=== PATIENT | female | born 1995 | race Caucasian/White ===

== ENCOUNTER 2017-09-12 23:42 | Inpatient (IN) | payer OTHER ==
[2017-09-13] MEDS: DEXTROSE 5%-LACTATED RINGERS 1,000 ML IV SCH ×3 (00:30→10:40)
[2017-09-13 00:52] LABS: BASO % 0.6 % (0-2.0); HEMATOCRIT 37.2 % (32.4-45.2); HEMOGLOBIN 12.6 GM/dL (10.7-15.3); MCH 28.6 pg (25.7-33.7); MEAN CELL VOLUME 84.2 fl (80-96); MEAN PLT VOLUME 8.3 fl (7.5-11.1); NEUT % 75.4 % (42.8-82.8); PLATELET COUNT 243 K/MM3 (134-434); RBC 4.42 M/mm3 (3.60-5.2); RDW 15.5 % (11.6-15.6)
[2017-09-13 01:14] VITALS: BMI 33.6
[2017-09-13 01:16] LABS: INR 0.89 (0.82-1.09); PROTHROMBIN TIME (PATIENT) 10.1 SEC (9.98-11.88)
[2017-09-13 01:19] LABS: ACTIVATED PTT 22.1 SECONDS (26.9-34.4)
[2017-09-13 01:31] LABS: ANION GAP 12 (8-16); BLOOD UREA NITROGEN 6 mg/dL (7-18); CALCIUM 8.8 mg/dL (8.5-10.1); CHLORIDE 103 mmol/L (98-107); CO2 23 mmol/L (21-32); CREATININE 0.4 mg/dL (0.55-1.02); GLUCOSE,RANDOM 92 mg/dL (74-106); SODIUM 138 mmol/L (136-145)
[2017-09-13 01:32] LABS: POTASSIUM 3.9 mmol/L (3.5-5.1)
[2017-09-13] MEDS ORDERED: SODIUM PHOSPHATE/NA BIPHOS 133 ML ENEMA PR ONE (08:00)
[2017-09-13] MEDS ORDERED: OXYTOCIN 30 UNITS in 0.9% NS 30 UNIT/500 ML INFUS.BAG IVPB SCH (08:30)
[2017-09-13] MEDS ORDERED: OXYTOCIN 30 UNITS in 0.9% NS 30 UNIT/500 ML INFUS.BAG IVPB ONE (08:38)
--- NOTE | 2017-09-13 09:48 | HP ---
Past Medical History - Admission Chief Complaint: Rupture of membrane History of Present Illness: 22 yo @ 39 weeks gestation, EDC 09/20/17, presents to L&D c/o rupture of membrane at 11 pm. Upon admission she was 4cm dilated with evidence of gross pooling. History Source: Patient Limitations to Obtaining History: No Limitations - Past Medical History ...: 1 ...Para: 0 ...Term: 0 ...: 0 ...Spon : 0 ...Induced : 0 ...Multiple Gestation: 0 ...LMP: 12/14/16 ... Weeks Gestation by Dates: 39.0 ...EDC by Dates: 09/20/17 ...EDC by Sono: 09/20/17 - Past Surgical History Past Surgical History: Yes: None Hx Myomectomy: No Hx Transabdominal Cerclage: No - Smoking History Smoking history: Never smoked Have you smoked in the past 12 months: No Aproximately how many cigarettes per day: 0 - Alcohol/Substance Use Hx Alcohol Use: No History of Substance Use: reports: None - Social History History of Recent Travel: No Home Medications - Allergies Allergies/Adverse Reactions: Allergies Allergy/AdvReac Type Severity Reaction Status Date / Time No Known Allergies Allergy Verified 09/13/17 00:37 - Home Medications Home Medications: Ambulatory Orders Vitamins (Sjr) - 1 tab PO DAILY 09/13/17 Family Disease History - Family Disease History Family History: Unremarkable Review of Systems - Review of Systems Constitutional: reports: No Symptoms Eyes: reports: No Symptoms HENT: reports: No Symptoms Neck: reports: No Symptoms Cardiovascular: reports: No Symptoms Respiratory: reports: No Symptoms Gastrointestinal: reports: No Symptoms Genitourinary: reports: Other (Rupture of membrane) Breasts: reports: No Symptoms Reported Musculoskeletal: reports: No Symptoms Integumentary: reports: No Symptoms Neurological: reports: No Symptoms Endocrine: reports: No Symptoms Hematology/Lymphatic: reports: No Symptoms Psychiatric: reports: No Symptoms Pain Intensity: 3 Physical Exam - Maternity Vital Signs: Vital Signs Temperature 97.7 F 09/13/17 08:00 Pulse Rate 98 H 09/13/17 09:00 Respiratory Rate 18 09/13/17 09:00 Blood Pressure 104/69 09/13/17 09:00 O2 Sat by Pulse Oximetry (%) Constitutional: Yes: Well Nourished Eyes: Yes: Conjunctiva Clear HENT: Yes: Atraumatic Neck: Yes: Supple Cardiovascular: Yes: Regular Rate and Rhythm Lungs: Clear to auscultation - Abdominal Exam/OB Number of Fetuses: Single Presentation: Vertex Regularity: Irregular - Vaginal Exam/OB Vaginal Bleediing: No Dilatation (cm): 4 - Physical Exam Musculoskeletal: Yes: WNL ...Motor Strength: WNL Psychiatric: Yes: Alert, Oriented - Labs Lab Results: CBC, BMP 09/13/17 00:41 09/13/17 00:41 Problem List - Problems (1) Spontaneous rupture of amniotic membranes Code(s): OJR5838 - (2) 39 weeks gestation of Code(s): Z3A.39 - 39 WEEKS GESTATION OF Assessment/Plan Spontaneous rupture of membrane Admit to L&D Anticipate
--- NOTE | 2017-09-13 10:03 | PN ---
Progress Note (short form) - Note Progress Note: 22 yrs , edc 09/20/17 [address] Reyes due to SROM at 11.00 pm 09/12/17 , onset of irregular UC since 12.00 midnight pnc at [address] [place] [address] A pos ,,Hbsag neg, Quantiferon , neg, , 1hr gtt 108, , Rpr nr,Hiv neg, Gbs neg, .. last sono 07/27/17 : Nt screen neg, Modified Sequential neg , SLIUP , Vx 32.1 weeks,, AFI12.5, , EFW 4'2"( 42%) UC were irregular 5-6 min , FHR 130-140 cat-1 tracing fleets enema followed by Iv pitocin augmentation is started at 8.45 AM 9.30 AM UC are irregular, mild, 3-5 min , fhr tracing cat-1 pelvic ex : 2 CM/70 %//mr/vX -3/-2 Selected Entries 09/13/17 09/13/17 08:00 09:00 Temperature 97.7 F Pulse Rate 89 98 H Blood Pressure 103/64 104/69 Laboratory Tests 09/13/17 09/13/17 09/13/17 00:41 00:41 00:41 WBC 8.0 Hgb 12.6 Hct 37.2 Plt Count 243 D Neutrophils % 75.4 D Lymphocytes % 16.0 D PT with INR 10.10 INR 0.89 PTT (Actin FS) 22.1 L Sodium 138 Potassium 3.9 Chloride 103 Carbon Dioxide 23 BUN 6 L Creatinine 0.4 L Random Glucose 92 Calcium 8.8 Blood Type 09/13/17 00:41 WBC Hgb Hct Plt Count Neutrophils % Lymphocytes % PT with INR INR PTT (Actin FS) Sodium Potassium Chloride Carbon Dioxide BUN Creatinine Random Glucose Calcium Blood Type A POSITIVE Imp 39 Week, /Latent labor/SROM/Pitocin Augmentation Plan : ct Pitoci pt prefers Epidural labor analgesia trial of labor for vaginal delivery
[2017-09-13] MEDS ORDERED: BUTORPHANOL TARTRATE 1 MG/ML VIAL ONE ×2 (12:55)
[2017-09-13] MEDS ORDERED: PROMETHAZINE HCL 25 MG/1 ML VIAL ONE (12:56)
[2017-09-13] MEDS ORDERED: BUTORPHANOL TARTRATE 1 MG/ML VIAL IVPUSH ONE (13:00)
[2017-09-13] MEDS ORDERED: PROMETHAZINE HCL 25 MG/1 ML VIAL IVPUSH ONE (13:00)
--- NOTE | 2017-09-13 14:39 | PN ---
Progress Note, Labor Vaginal Exam #1 Labor Exam Date: 09/13/17 Labor Exam Time: 14:30 Heart Rate (range): 135-110 Dilatation: 9 Effacement (%): 100 Amniotic Membrane Status: Ruptured Station: +2 Remarks: UC q 3 min fhr cat-2 , early decel Selected Entries 09/13/17 14:00 Temperature 97.9 F Pulse Rate 78 Blood Pressure 118/72 Vaginal Exam #2 Labor Exam Date: 09/13/17 Labor Exam Time: 15:00 Heart Rate (range): 120 Dilatation: 10 Effacement (%): 100 Amniotic Membrane Status: Ruptured Station: +3 Remarks: fhr cat-2 uc q2 min pt encouraged to push
[2017-09-13] MEDS ORDERED: LIDOCAINE HCL 1% PRESERVATIVE FREE - 30ML VIAL ONE (15:11)
[2017-09-13] MEDS ORDERED: OXYTOCIN 20 UNITS in 0.9% NS 20 UNIT/1,000 ML INFUS.BAG IV ONE ×2 (15:11→17:21)
[2017-09-13] MEDS: OXYTOCIN 20 UNITS in 0.9% NS 20 UNIT/1,000 ML INFUS.BAG IV SCH ×2 (15:50→17:30)
[2017-09-13] MEDS ORDERED: ceFAZolin SODIUM 1 GM VIAL ONE (16:16)
[2017-09-13] MEDS ORDERED: ACETAMINOPHEN INJECTION 100 ML IVPB ONE (16:16)
[2017-09-13] MEDS ORDERED: CEFAZOLIN 2 GM in DEXTROSE 5%-WATER - 100 ML IVPB ONE (16:20)
[2017-09-13] MEDS ORDERED: BISACODYL 10 MG SUPP.RECT RC PRN (17:06)
[2017-09-13] MEDS ORDERED: BENZOCAINE 28 GM HEMORRHOIDAL OINTMENT TP PRN (17:06)
[2017-09-13] MEDS ORDERED: oxyCODONE HCL 5 MG TABLET PO PRN (17:06)
[2017-09-13] MEDS ORDERED: METHYLERGONOVINE MALEATE 0.2 MG/1 ML AMP IM PRN (17:06)
[2017-09-13] MEDS ORDERED: ACETAMINOPHEN 1000 MG/100 ML VIAL (NON FORMULARY) IVPB ONE (17:15)
--- NOTE | 2017-09-13 17:23 | PN ---
Delivery - Delivery Vaginal Delivery: Spontaneous (baby delievered vx , hal position , immediate suction of nose & oral cavity was done .) Type of Anesthesia: Local Episiotomy/Laceration: Midline, Vaginal Extension/lac, 4th Degree (after delivery of placenta 4 th degree exension was noted by pr exam local ansthesia infiltrated 1 % xylocaine. . mucosa about 2 cm above anal end extended seen. with 3/0 chr catgut rectal mucosa was sutured . few interrupted sutures superior to it were taken. . sphincter was identified held seprately with 2 sutures . vaginal mucosa sutured with chr catgut #2/0 . supf & deep perineal muscles sutured in layers interrupted sutures . skin was approximated by matress sutures with chr catgut#2/0 . gloves changed couple of times . Bladder was cathetrized emptied. 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 Gbs neg pnc at [address] [place] [address] Pitocin augmentation was given stadol 2 mg + phenrgan 25 mg iv sta once was given at 13.00 hr . Intrapartum course was uneventful Iv Tylenol 1000 mg given during suturing of 4 th degree tear . IV Ancef 2 gm ivpb was given . Plan pp care . roby care for 4 th degree.
[2017-09-13] MEDS: FERROUS SO4 325 MG TABLET (FP) PO SCH (18:55)
[2017-09-13] MEDS: DOCUSATE SODIUM 100 MG CAPSULE (FP) PO SCH (22:01)
[2017-09-14] MEDS: IBUPROFEN 600 MG TABLET (FP) PO PRN (01:50)
[2017-09-14] MEDS: ACETAMINOPHEN 325 MG TABLET (FP) PO PRN (01:51)
[2017-09-14] MEDS: BENZOCAINE 20% 57 GM BOTTLE TP PRN ×2 (01:52→14:42)
[2017-09-14] MEDS: WITCH HAZEL 50% (TUCKS) 40 PAD/JAR PAD TP PRN ×2 (01:53→14:42)
[2017-09-14] MEDS ORDERED: CEFAZOLIN 1 GM in DEXTROSE 5%-WATER - 50 ML IVPB ONE (04:15)
[2017-09-14] MEDS: DOCUSATE SODIUM 100 MG CAPSULE (FP) PO SCH ×3 (07:53→21:56)
[2017-09-14] MEDS: FERROUS SO4 325 MG TABLET (FP) PO SCH ×2 (07:57→17:39)
[2017-09-14 08:14] LABS: BASO % 0.2 % (0-2.0); EOS % 0.3 % (0-4.5); HEMATOCRIT 28.8 % (32.4-45.2); HEMOGLOBIN 9.5 GM/dL (10.7-15.3); LYMPH % 12.1 % (8-40); MCH 27.9 pg (25.7-33.7); MEAN CELL VOLUME 84.6 fl (80-96); MEAN PLT VOLUME 8.3 fl (7.5-11.1); MONO % 6.2 % (3.8-10.2); NEUT % 81.2 % (42.8-82.8); PLATELET COUNT 200 K/MM3 (134-434); RBC 3.41 M/mm3 (3.60-5.2); RDW 15.2 % (11.6-15.6); WHITE BLOOD COUNT 11.5 K/mm3 (4.0-10.0)
--- NOTE | 2017-09-14 08:58 | PN ---
Progress Note (short form) - Note Progress Note: ppd1 doing well, no c/o CBC, BMP 09/14/17 07:20 09/13/17 00:41 Last Vital Signs Temp Pulse Resp BP Pulse Ox 98.3 F 86 18 101/63 100 09/14/17 06:00 09/14/17 06:00 09/14/17 06:00 09/14/17 06:00 09/13/17 18:30 abdomen soft, uterus firm, non tender lochia mild no calf tenderness impression ppd1 doing well plan ambulate , observe
[2017-09-14] MEDS: PRENATAL VITAMINS W/ FOLIC ACID TABLET (FP) PO SCH (10:35)
[2017-09-14] MEDS: OXYTOCIN 20 UNITS in 0.9% NS 20 UNIT/1,000 ML INFUS.BAG IV SCH (17:40)
[2017-09-15] MEDS: DOCUSATE SODIUM 100 MG CAPSULE (FP) PO SCH ×2 (06:23→14:55)
[2017-09-15] MEDS: FERROUS SO4 325 MG TABLET (FP) PO SCH (08:07)
[2017-09-15 08:56] VITALS: BP 97/55; PULSE 94; TEMP 98.6
[2017-09-15] MEDS: PRENATAL VITAMINS W/ FOLIC ACID TABLET (FP) PO SCH (09:11)
[2017-09-15] MEDS: IBUPROFEN 600 MG TABLET (FP) PO PRN (09:12)
[2017-09-15] MEDS: ACETAMINOPHEN 325 MG TABLET (FP) PO PRN (09:14)
[2017-09-15] MEDS ORDERED: DIPHTH,PERTUSS(ACELL),TET 0.5 ML DISP.SYRIN IM ONE (10:00)
[2017-09-15] MEDS ORDERED: FLU VACC QS2017-18 36MOS UP/PF 60 MCG/0.5 ML SYRINGE IM ONE (10:00)
== END 2017-09-15 15:30 | disposition home or self-care (01) | DRG 560 ==
LOC: JLDR 23:42 → J3W 09-13 20:15
PROVIDERS: ADMIT Obstetrics & Gynecology; ATTEND Obstetrics & Gynecology
PROC: 0DQP0ZZ Repair Rectum, Open Approach (ICD-10-PCS; principal; 2017-09-13)
PROC: 10E0XZZ Delivery of Products of Conception, External Approach (ICD-10-PCS; 2017-09-13)
DX: O70.3 Fourth degree perineal laceration during delivery (principal); Z3A.39 39 weeks gestation of pregnancy; Z37.0 Single live birth
CPT/HCPCS: 36415; 59409; 80048; 85025; 85610; 85730; 86593; 86850; 86900; 86901; 90686; 90715

== ENCOUNTER 2018-10-17 03:15 | Inpatient (IN) | payer OTHER ==
[2018-10-17] MEDS ORDERED: OXYTOCIN 20 UNITS in 0.9% NS 20 UNIT/1,000 ML INFUS.BAG IV ONE ×2 (03:38→04:28)
[2018-10-17] MEDS: OXYTOCIN 20 UNITS in 0.9% NS 20 UNIT/1,000 ML INFUS.BAG IV SCH ×2 (03:50→04:45)
[2018-10-17] MEDS ORDERED: oxyCODONE HCL 5 MG TABLET ONE (03:55)
[2018-10-17] MEDS ORDERED: oxyCODONE HCL 5 MG TABLET PO ONE (04:04)
--- NOTE | 2018-10-17 04:07 | PN ---
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
[2018-10-17 04:18] LABS: BASO % 0.3 % (0-2.0); EOS % 0.9 % (0-4.5); HEMATOCRIT 34.1 % (32.4-45.2); LYMPH % 23.5 % (8-40); MCH 24.5 pg (25.7-33.7); MCHC 32.2 g/dl (32.0-36.0); MEAN CELL VOLUME 76.2 fl (80-96); MEAN PLT VOLUME 7.9 fl (7.5-11.1); MONO % 6.7 % (3.8-10.2); NEUT % 68.6 % (42.8-82.8); PLATELET COUNT 259 K/MM3 (134-434); RBC 4.47 M/mm3 (3.60-5.2); RDW 15.8 % (11.6-15.6); WHITE BLOOD COUNT 7.8 K/mm3 (4.0-10.0)
[2018-10-17] MEDS ORDERED: BENZOCAINE 28 GM HEMORRHOIDAL OINTMENT TP PRN (04:21)
[2018-10-17] MEDS ORDERED: BISACODYL 10 MG SUPP.RECT RC PRN (04:21)
[2018-10-17] MEDS ORDERED: WITCH HAZEL 50% (TUCKS) 40 PAD/JAR PAD TP PRN (04:21)
[2018-10-17] MEDS ORDERED: BENZOCAINE 20% 57 GM BOTTLE TP PRN (04:21)
[2018-10-17] MEDS ORDERED: METHYLERGONOVINE MALEATE 0.2 MG/1 ML AMP IM PRN (04:21)
--- NOTE | 2018-10-17 04:27 | HP ---
Past Medical History - Admission Chief Complaint: Labor History of Present Illness: 23yo @ 39.5wks here with contractions. No VB/LOF. +FM PNC at [facility]. uncomplicated History Source: Patient Limitations to Obtaining History: No Limitations - Past Medical History ...: 2 ...Para: 1 ...Term: 1 ...: 0 ...EDC by Sono: 10/19/18 Heme/Onc: Yes: Anemia - Past Surgical History Past Surgical History: Yes: None Hx Myomectomy: No Hx Transabdominal Cerclage: No - Smoking History Smoking history: Never smoked Have you smoked in the past 12 months: No Aproximately how many cigarettes per day: 0 - Alcohol/Substance Use Hx Alcohol Use: No History of Substance Use: reports: None - Social History Usual Living Arrangement: Yes: With Spouse History of Recent Travel: No Home Medications - Allergies Allergies/Adverse Reactions: Allergies Allergy/AdvReac Type Severity Reaction Status Date / Time No Known Allergies Allergy Verified 09/13/17 00:37 - Home Medications Home Medications: Ambulatory Orders Vitamins (Sjr) - 1 tab PO DAILY 09/13/17 Acetaminophen [Tylenol .Regular Strength -] 650 mg PO Q3H PRN tablet 09/14/17 Benzocaine [Americaine 20% [place] -] 1 spray TP DAILY PRN bottle 09/14/17 Docusate Sodium [Colace -] 100 mg PO BID #60 capsule 09/14/17 Ferrous Sulfate [Feosol] 325 mg PO BIDWM #60 tab 09/14/17 Ibuprofen [Motrin -] 600 mg PO Q4H PRN #20 tablet 09/14/17 Vitamins (Sjr) - 1 tab PO DAILY #30 tablet 09/14/17 Witch [place] 50% (Tucks) [Tucks Pads -] 1 pad TP DAILY PRN pad 09/14/17 Physical Exam - Maternity Constitutional: Yes: Well Nourished Eyes: Yes: WNL, Conjunctiva Clear, EOM Intact HENT: Yes: WNL, Atraumatic, Normocephalic Neck: Yes: WNL, Supple Cardiovascular: Yes: Varicosities - Abdominal Exam/OB Number of Fetuses: Single Presentation: Vertex Contractions: Yes Regularity: Regular Intensity: Strong Monitor Mode: External Heart Rate Location: LUQ Accelerations: Non-Uniform Decelerations: None - Vaginal Exam/OB Vaginal Bleediing: No Dilatation (cm): 10 Effacement (%): 100 Amniotic Membrane Status: Intact Presentation: Vertex/Position Station: +1 - Labs Lab Results: CBC, BMP 10/17/18 04:00 Assessment/Plan 23yo @ 39.5wks, active labor, imminent delivery Admit to L&D IVFs Cat 1 tracing Anticipate precipitous delivery Herb Mcintyre MD
[2018-10-17 04:33] LABS: INR 0.87 (0.83-1.09); PROTHROMBIN TIME (PATIENT) 10.2 SEC (9.7-13.0)
[2018-10-17 04:35] LABS: ACTIVATED PTT 26.1 SECONDS (25.2-36.5)
[2018-10-17 04:42] LABS: ANION GAP 12 MMOL/L (8-16); BLOOD UREA NITROGEN 7 mg/dL (7-18); CALCIUM 8.1 mg/dL (8.5-10.1); CHLORIDE 105 mmol/L (98-107); CO2 21 mmol/L (21-32); CREATININE 0.6 mg/dL (0.55-1.3); GLUCOSE,RANDOM 139 mg/dL (74-106); POTASSIUM 3.7 mmol/L (3.5-5.1); SODIUM 137 mmol/L (136-145)
[2018-10-17] MEDS ORDERED: ACETAMINOPHEN 325 MG TABLET (FP) ONE (04:42)
[2018-10-17] MEDS ORDERED: IBUPROFEN 600 MG TABLET (FP) PO ONE (04:42)
[2018-10-17 04:46] VITALS: BMI 33.6
[2018-10-17] MEDS: IBUPROFEN 600 MG TABLET (FP) PO PRN ×2 (04:46→20:52)
[2018-10-17] MEDS: ACETAMINOPHEN 325 MG TABLET (FP) PO PRN ×2 (04:46→20:52)
[2018-10-17] MEDS: PRENATAL VITAMINS W/ FOLIC ACID TABLET (FP) PO SCH (10:00)
--- NOTE | 2018-10-18 07:43 | PN ---
Progress Note (short form) - Note Progress Note: ppd 1 doing well, no c/o , no excess vaginal bleeding CBC, BMP 10/17/18 04:00 10/17/18 04:00 Last Vital Signs Temp Pulse Resp BP Pulse Ox 98.5 F 80 20 113/67 99 10/18/18 05:00 10/18/18 05:00 10/18/18 05:00 10/18/18 05:00 10/17/18 21:42 abdomen soft, uterus firm, non tender lochia mild , no calf tenderness plan ambulate , cbc
[2018-10-18 08:09] LABS: BASO % 0.5 % (0-2.0); EOS % 1.7 % (0-4.5); HEMATOCRIT 30.4 % (32.4-45.2); HEMOGLOBIN 9.9 GM/dL (10.7-15.3); LYMPH % 20.6 % (8-40); MCH 24.7 pg (25.7-33.7); MCHC 32.5 g/dl (32.0-36.0); MEAN PLT VOLUME 7.8 fl (7.5-11.1); MONO % 6.2 % (3.8-10.2); PLATELET COUNT 218 K/MM3 (134-434); RDW 16.2 % (11.6-15.6); WHITE BLOOD COUNT 8.6 K/mm3 (4.0-10.0)
[2018-10-18] MEDS: PRENATAL VITAMINS W/ FOLIC ACID TABLET (FP) PO SCH (09:14)
[2018-10-18] MEDS ORDERED: SENNOSIDES/DOCUSATE COMBO (SENNA PLUS) TABLET (UD) PO PRN (22:00)
--- NOTE | 2018-10-19 09:25 | PN ---
Post Progress Note Type of Delivery: Vital Signs: Vital Signs Temperature 98.6 F 10/18/18 21:52 Pulse Rate 95 H 10/18/18 21:52 Respiratory Rate 20 10/18/18 21:52 Blood Pressure 104/63 10/18/18 21:52 O2 Sat by Pulse Oximetry (%) 99 10/17/18 21:42 Uterus: Yes: Fundus Firm Abdomen/GI: Yes: Abdomen soft Lochia: Yes: Rubra Lochia, amount: Small Extremities: Yes: Calves non-tender Perineum: Yes: Intact Activity: Ambulating - Labs Labs: CBC WBC 8.6 K/mm3 (4.0-10.0) 10/18/18 08:00 RBC 4.00 M/mm3 (3.60-5.2) 10/18/18 08:00 Hgb 9.9 GM/dL (10.7-15.3) L 10/18/18 08:00 Hct 30.4 % (32.4-45.2) L 10/18/18 08:00 MCV 76.0 fl (80-96) L 10/18/18 08:00 MCH 24.7 pg (25.7-33.7) L 10/18/18 08:00 MCHC 32.5 g/dl (32.0-36.0) 10/18/18 08:00 RDW 16.2 % (11.6-15.6) H 10/18/18 08:00 Plt Count 218 K/MM3 (134-434) 10/18/18 08:00 MPV 7.8 fl (7.5-11.1) 10/18/18 08:00 Absolute Neuts (auto) 6.1 K/mm3 (1.5-8.0) 10/18/18 08:00 Neutrophils % 71.0 % (42.8-82.8) 10/18/18 08:00 Lymphocytes % 20.6 % (8-40) 10/18/18 08:00 Monocytes % 6.2 % (3.8-10.2) 10/18/18 08:00 Eosinophils % 1.7 % (0-4.5) D 10/18/18 08:00 Basophils % 0.5 % (0-2.0) 10/18/18 08:00 Nucleated RBC % 0 % (0-0) 10/18/18 08:00 Assessment/Plan 23yo s/p , PPD#2 Routine PP care OOB, ambulate Anticipate d/c to home today Herb Mcintyre MD
--- NOTE | 2018-10-19 09:42 | DS ---
Physical Examination Vital Signs: Vital Signs Temperature 98.6 F 10/18/18 21:52 Pulse Rate 95 H 10/18/18 21:52 Respiratory Rate 20 10/18/18 21:52 Blood Pressure 104/63 10/18/18 21:52 O2 Sat by Pulse Oximetry (%) 99 10/17/18 21:42 Constitutional: Yes: Well Nourished Eyes: Yes: WNL, Conjunctiva Clear, EOM Intact HENT: Yes: WNL Cardiovascular: Yes: WNL, Regular Rate and Rhythm Respiratory: Yes: WNL, Regular, CTA Bilaterally Gastrointestinal: Yes: WNL, Normal Bowel Sounds Edema: No Peripheral Pulses WNL: No Labs: CBC, BMP 10/18/18 08:00 10/17/18 04:00 Discharge Summary Reason For Visit: LABOR ADMIT Procedures: Principal: Hospital Course: Patient presented in active She had an uncomplicated She met all milestones She was discharged home in stable condition on PPD#2 Condition: Stable - Instructions Diet, Activity, Other Instructions: Regular Diet Referrals: Estrella Mcintyre MD [Staff Physician] - Disposition: HOME - Home Medications Comprehensive Discharge Medication List: Ambulatory Orders Vitamins (Sjr) - 1 tab PO DAILY 10/17/18 Valacyclovir HCl [Valtrex] 500 mg PO BID 10/17/18 Ibuprofen 600 mg PO Q6H PRN #30 tablet 10/19/18
[2018-10-19] MEDS: PRENATAL VITAMINS W/ FOLIC ACID TABLET (FP) PO SCH (10:11)
[2018-10-19 11:31] VITALS: BP 105/61; PULSE 73; TEMP 98.3
== END 2018-10-19 12:35 | disposition home or self-care (01) | DRG 560 ==
LOC: JDEL 03:15 → JLDR 03:30 → J3W 14:30
PROVIDERS: ADMIT Obstetrics & Gynecology; ATTEND Obstetrics & Gynecology
PROC: 10E0XZZ Delivery of Products of Conception, External Approach (ICD-10-PCS; principal; 2018-10-17)
PROC: 0HQ9XZZ Repair Perineum Skin, External Approach (ICD-10-PCS; 2018-10-17)
PROC: 0W8NXZZ Division of Female Perineum, External Approach (ICD-10-PCS; 2018-10-17)
DX: O70.0 First degree perineal laceration during delivery (principal); Z3A.39 39 weeks gestation of pregnancy; Z37.0 Single live birth
CPT/HCPCS: 36415; 59409; 80048; 85025; 85610; 85730; 86593; 86850; 86900; 86901

== ENCOUNTER 2018-12-28 00:54 | Emergency (ER) | payer OTHER ==
[2018-12-28 01:39] VITALS: BP 103/72; PULSE 94; TEMP 98.3; BMI 31.4
--- NOTE | 2018-12-28 01:57 | PDOC ---
History of Present Illness - General Chief Complaint: Injury Stated Complaint: RIGHT INDEX FINGER SWOLLEN Time Seen by Provider: 12/28/18 01:20 History Source: Patient Exam Limitations: No Limitations - History of Present Illness Initial Comments: 12/28/18 01:55 HISTORY OF PRESENT ILLNESS: 23-year-old female denies medical history of presents emergency department for evaluation of right index finger swelling over 4 days. She reports the pain is in the cuticles and has noted some increased swelling of the cuticles with pus accumulation. Patient reports she was going attempts to I&D the wound herself but since her grandmother was in the emergency departments signed in for evaluation. She denies any fevers or chills, pain to the pad of the right index finger. Patient is right-hand dominant No recent travel or sick contacts. PAST MEDICAL HISTORY: Denies past medical history SURGICAL HISTORY: Denies ALLERGIES: No known drug allergies REVIEW OF SYSTEMS General/Constitutional: Denies fever or chills. Denies weakness, weight change. HEENT: Denies change in vision. Denies ear pain or discharge. Denies sore throat. Cardiovascular: Denies chest pain or shortness of breath. Respiratory: Denies cough, wheezing, or hemoptysis. Gastrointestinal: Denies nausea, vomiting, diarrhea or constipation. Denies rectal bleeding. Genitourinary: Denies dysuria, frequency, or change in urination. Musculoskeletal: see HPI Skin and breasts: Denies rash or easy bruising. Neurologic: Denies headache, vertigo, loss of consciousness, or loss of sensation. Psychiatric: Denies depression or anxiety. Endocrine: Denies increased thirst. Denies abnormal weight change. Hematologic/Lymphatic: Denies anemia, easy bleeding, or history of blood clots. Allergic/Immunologic: Denies hives or skin allergy. Denies latex allergy. PHYSICAL EXAM General Appearance: Well-appearing, appropriately dressed. No apparent distress , no intoxication. Respiratory/Chest: Lungs CTAB. No shortness of breath, chest tenderness, respiratory distress, accessory muscle use. No crackles, rales, rhonchi, stridor , wheezing, dullness Cardiovascular: RRR. S1, S2. No JVD, murmur, bradycardia, tachycardia. Vascular Pulses: Dorsalis-Pedis (R): 2+, Dorsalis-Pedis (L): 2+ Musculoskeletal/Extremities: Erythema present to the epionychium of the right index finger with pus collection presents on the radial aspect of the eponychia. Tenderness upon palpation. No subungual hemorrhage or accumulation present. No tenderness to palpation of the nailbed. Pattern of the finger on the volar surface not erythematous and nontender. No significant change from pattern of the left index finger. Integumentary: Appropriate color, dry, warm. No cyanosis, erythema, jaundice or rash Neurologic: stone splitter II-XII intact. Fully oriented, alert. Appropriate mood/affect. Motor strength 5/5. No appreciable EOM palsy, facial droop or sensory deficit. 12/28/18 01:57 Past History - Past Medical History Allergies/Adverse Reactions: Allergies Allergy/AdvReac Type Severity Reaction Status Date / Time No Known Allergies Allergy Verified 12/28/18 01:37 Home Medications: Ambulatory Orders Vitamins (Sjr) - 1 tab PO DAILY 10/17/18 Valacyclovir HCl [Valtrex] 500 mg PO BID 10/17/18 Ibuprofen 600 mg PO Q6H PRN #30 tablet 10/19/18 Cephalexin Monohydrate [Keflex -] 500 mg PO Q6H #28 capsule 12/28/18 Asthma: No Cancer: No Cardiac Disorders: No Diabetes: No HTN: No Seizures: No Thyroid Disease: No - Reproductive History Cervical CA: No Dysfunctional Uterine Bleeding: No Ectopic : No Endometrial CA: No Polycystic Ovaries: No Therapeutic (s) & number: No Tubal Ligation: No - Suicide/Smoking/Psychosocial Hx Smoking Status: No Smoking History: Never smoked Have you smoked in the past 12 months: No Number of Cigarettes Smoked Daily: 0 Information on smoking cessation initiated: No Hx Alcohol Use: No Drug/Substance Use Hx: No Hx Substance Use Treatment: No *Physical Exam - Vital Signs Last Vital Signs Temp Pulse Resp BP Pulse Ox 98.3 F 94 H 18 103/72 100 12/28/18 01:37 12/28/18 01:37 12/28/18 01:37 12/28/18 01:37 12/28/18 01:37 Procedures - Consent Consent obtained: Verbal, From Patient - Incision and Drainage I&D Site: Right: Paronychia (index) Betadine cleansed: Yes Blade Size: 11 Attempts: 1 Plain Packing: No Complications: none Dressing: Yes Progress: 12/28/18 02:15 pt tolerated well Medical Decision Making - Medical Decision Making 12/28/18 01:58 A/P: 23-year-old woman with paronychia to the right index finger Warm Betadine soaks I&D Discharge home *DC/Admit/Observation/Transfer Diagnosis at time of Disposition: Paronychia - Discharge Dispostion Disposition: HOME Condition at time of disposition: Improved Decision to Admit order: No - Prescriptions Prescriptions: Cephalexin Monohydrate [Keflex -] 500 mg PO Q6H #28 capsule - Referrals - Patient Instructions Additional Instructions: Rest, keep hand elevated Avoid heavy lifting or strenuous activity until healed Soak finger every 2-3 hours while awake for the next 2-3 days to keep continue to allow drainage Reapply bacitracin ointment and bulky dressing after each soaking May use ibuprofen or Tylenol for pain relief Followup with private physician or return to ER in 2 days for wound check as needed Return immediately to emergency department or private doctor's for worsening redness, swelling, pain, streaking Take all of antibiotics until completed - Post Discharge Activity
[2018-12-28] MEDS ORDERED: ACETAMINOPHEN 500 MG TABLET (FP) PO ONE (02:12)
[2018-12-28] MEDS ORDERED: ACETAMINOPHEN 325 MG TABLET (FP) ONE (02:14)
== END 2018-12-28 02:27 | disposition home or self-care (01) ==
LOC: JER 00:54
PROC: 0J9Q0ZZ Drainage of Right Foot Subcutaneous Tissue and Fascia, Open Approach (ICD-10-PCS; principal; 2018-12-28)
DX: L03.011 Cellulitis of right finger (principal)
CPT/HCPCS: 10060; 99281-25